=== PATIENT | male | born 1965 | race Caucasian/White ===

== ENCOUNTER → 2016-05-27 | Outpatient (CLI) | payer SELFPAY ==
--- NOTE | 2016-05-27 13:36 | US ---
EXAM DESCRIPTION: Abdomen,Complete CLINICAL HISTORY: GENERALIZED ABDOMEN PAIN COMPARISON: None Available. TECHNIQUE: Complete abdominal ultrasound FINDINGS: The liver is normal in appearance. There is no focal hepatic mass. The gallbladder is well seen and unremarkable. There are no gallstones. There is no gallbladder wall thickening. The common bile duct is normal in caliber measuring 3.9 mm. The pancreas and the spleen are unremarkable. The kidneys are normal in size, shape, and echotexture. The IVC and the proximal aorta are unremarkable. IMPRESSION: 1. Normal Electronically signed by: Shedlon Kinney MD 05/27/2016 1:35 PM CDT
== END | disposition home or self-care (01) ==
LOC: US 12:14
PROVIDERS: ATTEND Nurse Practitioner Family
DX: R10.84 Generalized abdominal pain (principal)

== ENCOUNTER 2019-07-21 05:40 | Day surgery (SDC) | payer BC ==
[2019-07-21] MEDS ORDERED: LACTATED RINGERS 1,000 ML ONE (06:40)
[2019-07-21] MEDS ORDERED: LIDOCAINE 1% 10 ML VIAL INJ ONE (07:00)
[2019-07-21] MEDS ORDERED: PROPOFOL 200 MG/20 ML VIAL IV ONE (07:00)
[2019-07-21] MEDS ORDERED: KETAMINE HCL 100 MG/ML VIAL ONE (08:04)
--- NOTE | 2019-07-21 09:19 | OP ---
DATE OF PROCEDURE: 07/21/19 INDICATION: Family history. PROCEDURE: Colonoscopy. SURGEON: Nico Vega MD PROCEDURE: General anesthesia was induced in the lateral position. Digital rectal exam was normal. The colonoscope was introduced and passed to the cecum. Upon withdrawal, a few polyps were removed. One was removed by cold snare in the proximal right colon, approximately 2.5 mm polyp. In the proximal transverse, again, a 2.5 mm polyp was removed with a cold snare. The remainder of the exam to the rectum was normal. In the rectum, we identified multiple small polyps, one in the proximal rectum, approximately three were removed ranging from 1 to 2 mm and another few in the distal. They were all sent as separate, but together. Retroflexion was normal. The camera is down at this time, so all findings are documented here. The patient tolerated the procedure and was taken to Recovery to be discharged. #[id number] MTDD
[2019-07-21 10:11] VITALS: BP 121/81; TEMP 97; O2SAT 97
== END 2019-07-21 10:00 | disposition home or self-care (01) ==
LOC: AMB 05:40
PROVIDERS: ATTEND Surgery
DX: Z12.11 Encounter for screening for malignant neoplasm of colon (principal); D12.2 Benign neoplasm of ascending colon; K63.5 Polyp of colon; K62.1 Rectal polyp; I10 Essential (primary) hypertension; Z87.891 Personal history of nicotine dependence; Z79.899 Other long term (current) drug therapy; Z88.0 Allergy status to penicillin; Z80.0 Family history of malignant neoplasm of digestive organs
CPT/HCPCS: 00812; 45385; J3490; J7120